=== PATIENT | female | born 1990 | race Caucasian/White ===

== ENCOUNTER 2016-03-10 16:26 | Emergency (ER) | payer MEDICAID ==
[2016-03-10] MEDS ORDERED: ONDANSETRON ODT 4 MG TABLET TL STA (17:31)
[2016-03-10] MEDS ORDERED: POTASSIUM BICARB 25 MEQ TABLET PO STA (17:32)
[2016-03-10] MEDS ORDERED: ONDANSETRON ODT 4 MG TABLET ONE (17:33)
[2016-03-10] MEDS ORDERED: POTASSIUM BICARB 25 MEQ TABLET PO ONE (17:33)
[2016-03-10] MEDS ORDERED: CEPHALEXIN 250 MG CAPSULE PO STA (17:49)
[2016-03-10] MEDS ORDERED: CEPHALEXIN 250 MG CAPSULE PO ONE (17:55)
[2016-03-10] MEDS ORDERED: NICOTINE 21 MG PATCH TOP STA (19:44)
[2016-03-10] MEDS ORDERED: NICOTINE 21 MG PATCH TOP ONE (20:07)
== END 2016-03-10 21:25 ==
DX: R45.851 Suicidal ideations (principal); F32.9 Major depressive disorder, single episode, unspecified; F31.9 Bipolar disorder, unspecified; F43.10 Post-traumatic stress disorder, unspecified; N39.0 Urinary tract infection, site not specified; E87.6 Hypokalemia; Z87.891 Personal history of nicotine dependence
CPT/HCPCS: 36415; 80053; 80306; 80307; 80320; 80329; 81001; 81025; 83690; 84443; 85025; 99283; 99285; A9270; Q0162

== ENCOUNTER 2016-04-04 18:25 | Emergency (ER) | payer MEDICAID | END 2016-04-04 20:26 | disposition home or self-care (01) | DX: F32.9 Major depressive disorder, single episode, unspecified (principal); F41.9 Anxiety disorder, unspecified; R45.851 Suicidal ideations; Z87.891 Personal history of nicotine dependence ==

== ENCOUNTER 2016-04-17 13:37 | Outpatient (CLI) | payer MEDICAID | END 2016-04-17 13:38 | DX: F31.81 Bipolar II disorder (principal) ==

== ENCOUNTER 2016-04-23 | Outpatient (CLI) | payer MEDICAID | END 2016-04-23 10:30 | disposition home or self-care (01) | DX: R07.9 Chest pain, unspecified (principal) ==

== ENCOUNTER 2018-07-08 19:18 | Emergency (ER) | payer MEDICAID ==
[2018-07-08 19:24] VITALS: BP 131/75
--- NOTE | 2018-07-08 19:30 | ED Physician Documentation ---
PD HPI LOWER EXT INJURY - Stated complaint Stated Complaint: L ANKLE INJ - Chief complaint Chief Complaint: Ext Problem - History obtained from History obtained from: Patient, Friend - History of Present Illness PD HPI LOW EXT INJURY LOCATION: Left, Ankle Type of injury: Twist (Inversion injury) Where injury occurred: Street (States stepped in a pothole) Timing - onset: How many hours ago (4) Timing - duration: Hours (4) Timing - details: Gradual onset Pain level max: 8 Pain level now: 6 Improved by: Rest, Ice, Immobilization Worsened by: Moving, Palpating Associated symptoms: Swelling. No: Weakness, Numbness, Tingling - Additional information Additional information: Was able to walk initially, now is unable to bear weight. 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: None : None HEENT: None Psych: Depression, Anxiety, Bipolar disorder, Panic attacks, Post traumatic stress disorder, Claustrophobia Musculoskeletal: None Derm: None - Past Surgical History Past Surgical History: No - Present Medications Home Medications: Ambulatory Orders Medication Instructions Recorded Confirmed Ibuprofen [Motrin] 800 mg PO Q8H PRN #30 tablet 07/08/18 Temazepam 07/08/18 - Allergies Allergies/Adverse Reactions: Allergies Allergy/AdvReac Type Severity Reaction Status Date / Time loratadine [From Claritin] Allergy Severe Anaphylaxis Verified 07/08/18 19:24 corn AdvReac Cramps Verified 07/08/18 19:24 lactose AdvReac Cramps Verified 07/08/18 19:24 wheat AdvReac Cramps Verified 07/08/18 19:24 rye AdvReac Unknown Uncoded 07/08/18 19:24 - Social History Does the pt smoke?: No Smoking Status: Former smoker Does the pt drink ETOH?: Yes Does the pt have substance abuse?: Yes - Immunizations Immunizations are current?: Yes - POLST Patient has POLST: No PD ED PE NORMAL - Vitals Vital signs reviewed: Yes - General General: Alert and oriented X 3, No acute distress - HEENT HEENT: Moist mucous membranes - Derm Derm: Warm and dry - Extremities Extremities: Other (L ankle - Tender palpation of the lateral malleolus. Neurovascularly intact. Otherwise normal examination of the foot and ankle. Mild soft tissue swelling.) - Neuro Neuro: Alert and oriented X 3 - Psych Psych: Normal mood, Normal affect Results - Vitals Vitals: Vital Signs - 24 hr 07/08/18 19:21 Temperature 37.3 C Heart Rate 88 Respiratory 16 Rate Blood Pressure 131/75 H O2 Saturation 98 Oxygen O2 Source Room air - Rads (name of study) Left ankle x-ray Radiology: Prelim report reviewed, EMP read contemporaneously, See rad report (No acute bony abnormality) PD MEDICAL DECISION MAKING - ED course Complexity details: reviewed results, re-evaluated patient, considered differential, d/w patient ED course: Patient with a left ankle sprain. Placed in an air splint. Given crutches. Will prescribe Motrin for pain. We will follow-up with her PCP as needed for further care. Patient counseled regarding signs and symptoms for which I believe and urgent re-evaluation would be necessary. Patient with good understanding of and agreement to plan and is comfortable going home at this time This document was made in part using voice recognition software. While efforts are made to proofread this document, sound alike and grammatical errors may occur. Departure - Departure Disposition: 01 Home, Self Care Clinical Impression: Left ankle sprain Qualifiers: Encounter type: initial encounter Involved ligament of ankle: unspecified ligament Qualified Code(s): S93.402A - Sprain of unspecified ligament of left ankle, initial encounter Condition: Good Instructions: ED Sprain Ankle W X Ray Follow-Up: Sue Jones ARNP [Primary Care Provider] - Within 1 week Prescriptions: Ibuprofen [Motrin] 800 mg PO Q8H PRN #30 tablet PRN Reason: PAIN &/OR FEVER Comments: Use the crutches and wear the splint as needed for comfort. Return if you worsen. This should improve over the next week. Follow-up with your doctor in 1 week if you are still having symptoms Discharge Date/Time: 07/08/18 20:32
--- NOTE | 2018-07-08 20:01 | XRAY Report ---
Reason: L ankle pain, s/p inversion. TTP lat mall Procedure Date: 07/08/2018 Accession Number: [id number] / [id number] Procedure: XR - Ankle 3 View LT CPT Code: FULL RESULT: EXAM: LEFT ANKLE RADIOGRAPHY EXAM DATE: 07/08/2018 07:47 PM. CLINICAL HISTORY: Left ankle pain, status post inversion. Tenderness to palpation, lateral malleolus. COMPARISON: None. TECHNIQUE: 3 views. FINDINGS: Bones: Normal. No fractures or bone lesions. Joints: Normal. No effusion. No subluxations. The ankle mortise is normally aligned. Soft Tissues: Lateral soft tissue swelling. IMPRESSION: No evidence of fracture or disruption of the ankle mortise. [facility]
== END 2018-07-08 20:32 | disposition home or self-care (01) ==
LOC: ED 19:18
DX: S93.402A Sprain of unspecified ligament of left ankle, initial encounter (principal); W18.42XA Slipping, tripping and stumbling without falling due to stepping into hole or opening, initial encounter; Y92.410 Unspecified street and highway as the place of occurrence of the external cause; Z87.891 Personal history of nicotine dependence
CPT/HCPCS: 99283